=== PATIENT | male | born 1990 | race Caucasian/White ===

== ENCOUNTER 2024-01-12 11:14 | Emergency (ER) | payer OTHER ==
[2024-01-12 11:38] VITALS: BP 143/95; PULSE 100; RESP 18; TEMP 98.1; BMI 29.9
[2024-01-12] MEDS ORDERED: IBUPROFEN 600 MG TABLET (FP) PO ONE (12:09)
[2024-01-12] MEDS ORDERED: ACETAMINOPHEN 500 MG TABLET (FP) ONE (12:09)
[2024-01-12] MEDS: IBUPROFEN 600 MG TABLET (FP) PO ONE (12:14)
[2024-01-12] MEDS: ACETAMINOPHEN 500 MG TABLET (FP) PO ONE (12:14)
== END 2024-01-12 13:38 | disposition home or self-care (01) ==
LOC: JERFT 11:14 → JER 11:14 → JERFT 13:38
DX: M54.2 Cervicalgia (principal); M79.644 Pain in right finger(s); V49.49XA Driver injured in collision with other motor vehicles in traffic accident, initial encounter; Y92.410 Unspecified street and highway as the place of occurrence of the external cause
CPT/HCPCS: 99283-25